=== PATIENT | female | born 1990 | race African-American/Black ===

== ENCOUNTER 2017-01-19 20:54 | Emergency (ER) | payer SELFPAY ==
[~2017-01-19] VITALS: Ht 154.9 cm; Wt 61.2 kg
--- NOTE | 2017-01-19 21:33 | NUR ---
DR. WATSON AT BEDSIDE FOR MSE.
[2017-01-19 21:50] LABS: BASOPHILS # (AUTO) 0.1 K/uL (0.0-8.0); BASOPHILS % (AUTO) 1.4 % (0.0-2.0); EOSINOPHILS # (AUTO) 0.1 K/uL (0.0-0.7); EOSINOPHILS % (AUTO) 1.2 % (0.0-7.0); HEMATOCRIT 38.7 % (37-47); HEMOGLOBIN 12.3 G/DL (12.0-16.0); LYMPHOCYTES # (AUTO) 1.9 K/UL (0.8-4.8); LYMPHOCYTES % (AUTO) 37.5 % (20.5-51.5); MEAN CORPUSCULAR HEMOGLOBIN 28.6 UUG (27.0-31.0); MEAN CORPUSCULAR HGB CONC 32 g/dL (32.0-37.0); MEAN CORPUSCULAR VOLUME 89.5 FL (81.0-99.0); MONOCYTES # (AUTO) 0.4 K/UL (0.1-1.30); MONOCYTES % (AUTO) 7.5 % (0.0-11.0); NEUTROPHILS # (AUTO) 2.5 K/UL (1.8-8.9); NEUTROPHILS % (AUTO) 52.4 % (38.5-71.5); PLATELET COUNT (AUTO) 272 K/UL (150-450); RED BLOOD CELL COUNT(AUTO) 4.32 MIL/UL (4.2-5.4)
[2017-01-19 21:55] LABS: CREATININE 0.9 mg/dL (0.6-1.3); POTASSIUM 3.7 mmol/L (3.5-5.1)
[2017-01-19 22:13] VITALS: BP 102/64
== END 2017-01-19 22:13 | disposition home or self-care (01) ==
LOC: ER 20:55
DX: R20.2 Paresthesia of skin (principal); R20.0 Anesthesia of skin
CPT/HCPCS: 36415; 80048; 84703; 85025; 99284; A4663